=== PATIENT | female | born 2000 | race Caucasian/White ===

== ENCOUNTER 2024-03-17 13:54 | Emergency (ER) | payer OTHER, SELFPAY ==
--- NOTE | ~2024-03-17 | XR_ITS ---
XR finger 4th RT min 2V Ordering provider: Steev Vences APRN History: . post reduction . Comparison: March 17, 2024 FINDINGS: BONES: No acute fracture or dislocation. Status post reduction of the dislocation seen previously at the proximal interphalangeal joint of the fourth finger. JOINT SPACES: Normal. SOFT TISSUES: Normal. IMPRESSION: No acute osseous abnormality. Status post reduction of the dislocation seen previously at the proximal interphalangeal joint of the fourth finger. Reviewed, dictated and finalized at location A. IMPRESSION: No acute osseous abnormality. Status post reduction of the dislocation seen previously at the proximal interp halangeal joint of the fourth finger.
--- NOTE | ~2024-03-17 | XR_ITS ---
XR finger 4th RT min 2V DATE: 03/17/2024 14:16 INDICATION: Finger caught in a chain-link fence; deformity TECHNIQUE: 3 views COMPARISON: None FINDINGS: There is complete posteromedial dislocation at the proximal interphalangeal joint without a pparent associated fracture. No other fracture or dislocation is evident. There is soft tissue swelling of the digit. IMPRESSION: Posteromedial dislocation at the proximal interphalangeal joint of the fourth digit, with out apparent associated fracture Reviewed, dictated and finalized at location J. IMPRESSION: Posteromedial dislocation at the proximal interphalangeal joint of the fourth digit, without apparent associated fracture
[2024-03-17 14:21] VITALS: BP 121/85; PULSE 126; RESP 18; TEMP 37.2; O2SAT 100
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
[2024-03-17 16:33] VITALS: BP 118/89; PULSE 98; RESP 18; O2SAT 100
== END 2024-03-17 16:34 | disposition home or self-care (01) ==
PROVIDERS: Emergency Provider Nurse Practitioner Family
DX: S63.274A Dislocation of unspecified interphalangeal joint of right ring finger, initial encounter (principal); S61.214A Laceration without foreign body of right ring finger without damage to nail, initial encounter; S40.211A Abrasion of right shoulder, initial encounter; S50.311A Abrasion of right elbow, initial encounter; W19.XXXA Unspecified fall, initial encounter
CPT/HCPCS: 26770; 73140; 99285

== ENCOUNTER 2025-02-06 20:52 | Emergency (ER) | payer OTHER, SELFPAY ==
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
[2025-02-06 21:09] VITALS: BP 143/87; PULSE 95; RESP 16; TEMP 36.7; O2SAT 100
[2025-02-06 21:47] VITALS: BP 119/76; PULSE 63; RESP 18; O2SAT 100
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
[2025-02-06 23:18] VITALS: BP 123/81; PULSE 84; RESP 20; O2SAT 100
[2025-02-06 23:29] LABS: Basophils Percent Auto 0.4 % (0.2-1.2); Eosinophils Absolute Auto 0.1 K/mm3 (0-0.3); Eosinophils Percent Auto 1.1 % (0-4.4); Hematocrit 36.6 % (37.0-47.0); Hemoglobin 12.3 g/dL (12.0-15.0); Immature Granulocyte Absolute 0.02 K/mm3 (0.00-0.031); Immature Granulocyte Percent A 0.3 % (0-0.5); Lymphocytes Absolute Auto 2.59 K/mm3 (0.9-3.2); Lymphocytes Percent Auto 35.1 % (18.3-44.2); Mean Corpuscular HGB Conc 33.6 g/dl (32-36); Mean Corpuscular Hemoglobin 29.2 pg (26-34); Mean Corpuscular Volume 86.9 fl (80-100); Mean Platelet Volume 9.3 fl (7.4-10.4); Monocytes Absolute Auto 0.7 K/mm3 (0.1-0.6); Monocytes Percent Auto 9.2 % (2.6-8.5); Neutrophils Percent Auto 53.9 % (45.5-73.1); Platelet Count Result 238 k/mm3 (150-375); Red Blood Count 4.21 M/mm3 (4.2-5.4); Red Cell Distribution Width 11.9 % (11.5-14.5); White Blood Count 7.4 K/mm3 (4.5-10.0)
[2025-02-06 23:38] LABS: Alanine Aminotransferase 15 U/L (6-35); Albumin Level 4.1 g/dL (3.5-5.1); Alkaline Phosphatase 28 U/L (38-126); Anion Gap 5 mmol/L (4-12); Aspartate Amino Transferase 24 U/L (14-36); Bilirubin,Total 0.4 mg/dL (0.2-1.3); Blood Urea Nitrogen 13 mg/dL (7-17); Calcium 8.8 mg/dL (8.4-10.2); Carbon Dioxide 26 mmol/L (22-30); Chloride 106 mmol/L (98-107); Estimated CRCL calculation 101 ml/min; Estimated Glomerular Filt Rate > 60; Glucose 91 mg/dL (65-110); Potassium 3.5 mmol/L (3.4-5.0); Sodium 137 mmol/L (137-145); Total Protein 6.9 g/dL (6.3-8.2)
[2025-02-07 00:35] VITALS: BP 119/72; PULSE 88; RESP 20; O2SAT 100
== END 2025-02-07 00:35 | disposition home or self-care (01) ==
PROVIDERS: Emergency Provider Physician Assistant
DX: S16.1XXA Strain of muscle, fascia and tendon at neck level, initial encounter (principal); S70.02XA Contusion of left hip, initial encounter; V43.52XA Car driver injured in collision with other type car in traffic accident, initial encounter
CPT/HCPCS: 36415; 71260; 72125; 74177; 80053; 85025; 99284; Q9967